=== PATIENT | female | born 1995 | race Caucasian/White ===

== ENCOUNTER 2022-04-08 12:07 | Emergency (ER) | payer OTHER ==
[2022-04-08 12:44] LABS: Urine Blood 3+ (Negative); Urine Glucose Negative (Negative); Urine Protein 2+ (Negative); Urine Specific Gravity >=1.030 (1.005-1.030); Urine pH 6.5 (5.0-7.0)
[2022-04-08 13:03] LABS: Absolute Lymphocytes (CBC) 1.8 K/uL (0.7-4.9); Hematocrit 37.6 % (36.0-45.0); Lymphocytes % 31.4 % (15.3-44.8); MCV 77.1 fL (80-100); MPV 7.4 fL (7.6-11.3); RBC Red Blood Cell Count 4.88 M/uL (3.86-4.86)
[2022-04-08 13:20] LABS: Potassium 3.5 mmol/L (3.5-5.1)
--- NOTE | 2022-04-08 13:22 | RAD REPORT ---
EXAM DESCRIPTION: US - Transvaginal OB - 04/08/2022 1:11 pm CLINICAL HISTORY: VAGINAL BLEEDING COMPARISON: No comparisons FINDINGS: The uterus is normal in size. The uterus measures 6.1 x 5.5 x 4.5 cm. Endometrium measures 11 mm. No gestational sac seen in the endometrial canal. The maternal adnexa and ovaries are within normal limits. Normal Doppler blood flow was demonstrated to both ovaries. IMPRESSION: No gestational sac is seen in the endometrial canal. There is mild thickening of the end ometrium. In the setting of a positive HCG level, this would indicate of unknown location. Recommend follow-up pelvic sonography in 7-10 days and serial HCG measurements.
--- NOTE | 2022-04-08 13:57 | EDPHYS ---
Physician Documentation [facility] Name: Lashon Urbano Age: 27 yrs Sex: Female : 1995 Arrival Date: 04/08/2022 Time: 12:09 Bed Treatment Private MD: ED Physician Constantino Brady HPI: 04/08 13:55 This 27 yrs old Female presents to ER via Ambulatory with complaints of Vaginal kb Bleeding, + Preg <12wks. 13:55 The patient presents to the emergency department with vaginal bleeding, that is kb moderate. The estimated gestational age is 5 weeks. course: care: private OB physician, Leakage of Fluid: none appreciated, Ultrasound: the patient has not had an ultrasound, Risk/complications: no obvious risks or complications are appreciated. Previous pregnancies: in previous pregnancies patient has had , no complications. Associated signs and symptoms: Pertinent positives: vaginal bleeding. The patient has not experienced similar symptoms in the past. The patient has not recently seen a physician. Pt reports she is approx 5 weeks and started having vaginal bleeding today. 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 Last tetanus immunization: up to date. - Social history:: Smoking status: Patient denies any tobacco usage or history of. ROS: 13:55 Constitutional: Negative for fever, chills, and weight loss. kb 13:55 : Positive for vaginal bleeding. 13:55 All other systems are negative. Exam: 13:55 Constitutional: This is a well developed, well nourished patient who is awake, alert, kb and in no acute distress. Head/Face: Normocephalic, atraumatic. ENT: Moist Mucous membranes Cardiovascular: Regular rate and rhythm with a normal S1 and S2. No gallops, murmurs, or rubs. No pulse deficits. Respiratory: Respirations even and unlabored. No increased work of breathing. Talking in full sentences Abdomen/GI: Soft, non-tender. No distention Skin: Warm, dry with normal turgor. Normal color. MS/ Extremity: Pulses equal, no cyanosis. Neurovascular intact. Full, normal range of motion. Neuro: Awake and alert, GCS 15, oriented to person, place, time, and situation. Moves all extremities. Normal gait. Psych: Awake, alert, with orientation to person, place and time. Behavior, mood, and affect are within normal limits. Vital Signs: 12:27 BP 113 / 72; Pulse 73; Resp 20; Temp 98; Pulse Ox 100% ; Weight 68.04 kg; Height 5 ft. kb3 7 in. (170.18 cm); Pain 3/10; 12:27 Body Mass Index 23.49 (68.04 kg, 170.18 cm) kb3 MDM: 12:31 Patient medically screened. kb 13:55 Data reviewed: vital signs, nurses notes. Data interpreted: Pulse oximetry: on room air kb is 100 %. Interpretation: normal. Counseling: I had a detailed discussion with the patient and/or guardian regarding: the historical points, exam findings, and any diagnostic results supporting the discharge/admit diagnosis, lab results, radiology results, the need for outpatient follow up, an OB/Gyne specialist, to return to the emergency department if symptoms worsen or persist or if there are any questions or concerns that arise at home. 12 12:44 Order name: Urine Dipstick-Ancillary; Complete Time: 12:44 EDMS 04/08 12:44 Order name: Urine --Ancillary (enter results); Complete Time: 13:14 eb 04/08 12:45 Order name: Abo/rh Typing; Complete Time: 13:24 kb 04/08 12:45 Order name: Basic Metabolic Panel; Complete Time: 13:24 kb 04/08 12:45 Order name: CBC with Diff; Complete Time: 13:07 kb 04/08 12:45 Order name: Quantitative Hcg; Complete Time: 13:24 kb 04/08 12:32 Order name: Urine Dipstick-Ancillary (obtain specimen); Complete Time: 12:44 kb 04/08 12:32 Order name: Urine Test (obtain specimen); Complete Time: 12:44 kb 12/02 12:45 Order name: US Transvaginal Ob; Complete Time: 13:24 kb 04/08 12:45 Order name: IV Saline Lock; Complete Time: 13:06 kb 04/08 12:45 Order name: Labs collected and sent; Complete Time: 13:06 kb 04/08 12:45 Order name: NPO; Complete Time: 13:06 kb Administered Medications: No medications were administered Point of Care Testing: Urine : 14:05 hCG Reading: Positive; jh5 Disposition: 18:53 Co-signature as Attending Physician, Constantino Brady MD. rn Disposition Summary: 04/08/22 13:57 Discharge Ordered Location: Home kb Condition: Stable kb Diagnosis - Threatened kb Followup: kb - With: Emergency Department - When: As needed - Reason: Worsening of condition Followup: kb - With: Private Physician - When: 2 - 3 days - Reason: Recheck today's complaints, Continuance of care, Re-evaluation by your physician Discharge Instructions: - Discharge Summary Sheet kb - Threatened Miscarriage, [id number] kb - Vaginal Bleeding During , First Trimester, [id number] kb Forms: - Medication Reconciliation Form kb - Thank You Letter kb - Antibiotic Education kb - Prescription Opioid Use kb Signatures: Dispatcher [employer] Loreto Moody, DETECTOR CAR OPERATOR-C DETECTOR CAR OPERATOR-Constantino Bedolla MD MD rn Bradberry, Kelly, RN RN kb3
--- NOTE | 2022-04-08 13:57 | ER ---
Nurse's Notes [facility] Name: Lashon Urbano Age: 27 yrs Sex: Female : 1995 Arrival Date: 04/08/2022 Time: 12:09 Bed Treatment Private MD: Diagnosis: Threatened Presentation: 04/08 12:27 Chief complaint: Patient states: Pt reports LMP 02/28/2022, + test 222 days kb3 ago. Woke up this morning bleeding as if on menstrual cycle with associated cramping. Coronavirus screen: Vaccine status: Patient reports being unvaccinated. Client denies travel out of the [place] in the last 14 days. Ebola Screen: Patient negative for fever greater than or equal to 101.5 degrees Fahrenheit, and additional compatible Ebola Virus Disease symptoms Patient denies exposure to infectious person. Patient denies travel to an Ebola-affected area in the 21 days before illness onset. No symptoms or risks identified at this time. Initial Sepsis Screen: Does the patient meet any 2 criteria? No. Patient's initial sepsis screen is negative. Does the patient have a suspected source of infection? No. Patient's initial sepsis screen is negative. Risk Assessment: Do you want to hurt yourself or someone else? Patient reports no desire to harm self or others. Onset of symptoms was April 08, 2022 at 07:00. 12:27 Method Of Arrival: Ambulatory kb3 12:27 Acuity: BRAULIO 3 kb3 Triage Assessment: 12:29 General: Appears in no apparent distress. Behavior is calm, cooperative. Pain: kb3 Complains of pain in suprapubic area, right lower quadrant and left lower quadrant Pain does not radiate. Pain currently is 3 out of 10 on a pain scale. Pain: Quality of pain is described as crampy. : Reports cramping, vaginal bleeding that is bright red. 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 Last tetanus immunization: up to date. - Social history:: Smoking status: Patient denies any tobacco usage or history of. Screenin:04 Abuse screen: Denies threats or abuse. Denies injuries from another. Nutritional 5 screening: No deficits noted. Tuberculosis screening: No symptoms or risk factors identified. Fall Risk None identified. Vital Signs: 12:27 BP 113 / 72; Pulse 73; Resp 20; Temp 98; Pulse Ox 100% ; Weight 68.04 kg; Height 5 ft. kb3 7 in. (170.18 cm); Pain 3/10; 12:27 Body Mass Index 23.49 (68.04 kg, 170.18 cm) kb3 ED Course: 12:09 Patient arrived in ED. rg4 12:17 Loreto Coleman FNP-C is [facility]. kb 12:17 Constantino Brady MD is Attending Physician. kb 12:29 Triage completed. kb3 12:29 Arm band placed on right wrist. kb3 12:44 Savana Emery, RN is Primary Nurse. jh5 13:13 Transvaginal Ob In Process Unspecified. EDMS 14:04 Patient has correct armband on for positive identification. jh5 14:04 No provider procedures requiring assistance completed. IV discontinued, intact, jh5 bleeding controlled, No redness/swelling at site. Pressure dressing applied. Administered Medications: No medications were administered Medication: 14:06 VIS not applicable for this client. 5 Point of Care Testing: Urine : 14:05 hCG Reading: Positive; 5 Outcome: 13:57 Discharge ordered by . kb 14:04 Discharged to home ambulatory. jh5 14:04 Condition: good 14:04 Discharge instructions given to patient, Instructed on discharge instructions, follow up and referral plans. medication usage, safety practices, Demonstrated understanding of instructions, follow-up care, medications. 14:06 Patient left the ED. 5 Signatures: Dispatcher [employer] EDIL Loreto Coleman FNP-C FNP-Ckb Garcia, Rubi rg4 Savana Emery, RN RN 5 Aleta Mariee RN RN 3
[2022-04-08 14:30] VITALS: BP 113/72; TEMP 98; O2SAT 100
== END 2022-04-08 14:06 | disposition home or self-care (01) ==
LOC: ER 12:07
DX: O20.0 Threatened abortion (principal); Z3A.01 Less than 8 weeks gestation of pregnancy
CPT/HCPCS: 36415; 76817; 80048; 81003; 81025; 84702; 85025; 86900; 86901; 99283